=== PATIENT | male | born 1970 | race Caucasian/White ===

== ENCOUNTER 2020-09-21 13:31 | Observation (INO) ==
[2020-09-21] MEDS ORDERED: NORMAL SALINE 1,000 ML IV ONE ×4 (13:36→22:14)
[2020-09-21] MEDS ORDERED: LORazepam 2 MG/ML DISP.SYRIN IV ONE ×2 (13:43→14:43)
[2020-09-21 14:09] LABS: Hematocrit 34.7 % (42.0-52.0); Hemoglobin 11.7 gm/dL (13.5-18.0); Mean Cell Volume 105.8 fl (78-100); Mean Corpuscular Hemoglobin 35.7 pg (27-31); Mean Corpuscular Hgb Conc 33.7 g/dl (32-36); Mean Platelet Volume 10.9 fl (8-11.3); Neutrophil # 2.8 K/mm3 (1.3-6.0); Platelet Count 79 K/mm3 (150-450); Red Blood Count 3.28 M/mm3 (4.7-6.0); Red Cell Distribution Width 11.7 % (11.5-14.0)
[2020-09-21 14:27] LABS: ALT 119 U/L (19-67); AST 177 U/L (0-48); Albumin * 3.3 gm/dl (3.4-5.0); Alkaline Phosphatase * 66 U/L (50-170); Anion Gap 14.9 mmol/L (6.8-13.8); BUN/Creatinine Ratio 8.4 (9.0-21.6); Bilirubin, Total 1.5 mg/dL (0.0-1.1); Blood Urea Nitrogen 9 mg/dL (6-23); Ca. Corrected For Albumin 9.2 mg/dL (8.4-10.2); Carbon Dioxide 27.2 mmol/L (24-32.6); Chloride 100 mmol/L (97-106); Glucose * 185 mg/dL (70-110); Lipase 96 U/L (73-393); Potassium 3.1 mmol/L (3.4-4.6); Sodium 139 mmol/L (132-142); TSH * 0.494 uIU/mL (0.358-3.74)
[2020-09-21 14:28] LABS: Troponin I Less than 0.017 ng/mL (0.00-0.10)
[2020-09-21 15:01] LABS: Urine Appearance Clear (CLEAR); Urine Bilirubin Negative (NEGATIVE); Urine Blood Negative /ul (NEGATIVE); Urine Color Dark Yellow; Urine Ketone Negative (NEGATIVE); Urine Protein 15 mg/dL (NEGATIVE); Urine pH 8.5 pH (5.0-7.0)
[2020-09-21 15:02] LABS: Urine Bacteria None Seen; Urine Nitrite Negative (NEGATIVE); Urine RBC None Seen /hpf (0-5); Urine WBC 0-5 /hpf (0-5)
[2020-09-21 15:07] LABS: Cocaine Ur Negative (NEGATIVE); Urine Barbiturate Negative (NEGATIVE); Urine Benzodiazepines Negative (NEGATIVE); Urine Opiates Negative (NEGATIVE); Urine PCP Negative (NEGATIVE); Urine THC Positive (NEGATIVE)
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
[2020-09-21] MEDS ORDERED: ACETAMINOPHEN 325 MG TABLET PO PRN (22:07)
[2020-09-21] MEDS ORDERED: POTASSIUM CHLORIDE 20 MEQ TABLET.SA PO ONE (22:24)
[2020-09-21] MEDS: NICOTINE 21 MG PATC TD SCH (22:30)
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
[2020-09-21] MEDS: LORazepam 1 MG TABLET PO PRN (22:50)
[2020-09-22 06:21] LABS: Hematocrit 38.4 % (42.0-52.0); Hemoglobin 13.1 gm/dL (13.5-18.0); Mean Cell Volume 104.9 fl (78-100); Mean Corpuscular Hemoglobin 35.8 pg (27-31); Mean Corpuscular Hgb Conc 34.1 g/dl (32-36); Mean Platelet Volume 10.9 fl (8-11.3); Neutrophil # 2.8 K/mm3 (1.3-6.0); Neutrophil % 59.8 % (42-75.0); Platelet Count 91 K/mm3 (150-450); Red Blood Count 3.66 M/mm3 (4.7-6.0); Red Cell Distribution Width 11.4 % (11.5-14.0); White Blood Count 4.6 K/mm3 (4.0-10.5)
[2020-09-22 06:35] LABS: Albumin * 3.4 gm/dl (3.4-5.0); Anion Gap 11.6 mmol/L (6.8-13.8); BUN/Creatinine Ratio 6.5 (9.0-21.6); Bilirubin, Total 1.8 mg/dL (0.0-1.1); Ca. Corrected For Albumin 8.8 mg/dL (8.4-10.2); Calcium * 8.6 mg/dL (7.9-10.9); Carbon Dioxide 27.3 mmol/L (24-32.6); Potassium 2.9 mmol/L (3.4-4.6); Total Protein 7.6 gm/dL (6.2-8.2)
[2020-09-22] MEDS: PANTOPRAZOLE SODIUM 20 MG TABLET.DR PO SCH ×2 (07:13→20:04)
[2020-09-22] MEDS ORDERED: THIAMINE HCL 100 MG TABLET PO SCH (09:00)
[2020-09-22] MEDS ORDERED: FOLIC ACID 1 MG TABLET PO SCH (09:00)
[2020-09-22] MEDS ORDERED: POTASSIUM CHLORIDE 20 MEQ TABLET.SA PO ONE (11:22)
--- NOTE | 2020-09-22 11:36 | PN ---
Subjective - Date and Time Seen Date: 09/22/20 Time: 11:30 Subjective Narrative: I feel better but am still shaky. Objective Objective Narrative: 50-year-old male admitted for apparent alcohol withdrawal seizures, alcohol induced liver injury, and hypokalemia was evaluated bedside this morning was found to be afebrile and in no acute distress. The patient appears fully alert and awake this morning and seems to be his usual self, he does however appear to be tremulous but compared to yesterday this has improved. There was no recurrence of seizures since admission however he was treated with another dose of Ativan for his tremulousness and anxiety. This morning we had another talk about safely weaning off alcohol and abstaining from abusing in the future, he is still in denial that this is not due to alcohol and might be something else. However it was explained to him given his long history of alcoholism alcohol withdrawal seizures is a likely diagnosis. Labs done this morning revealed worsening of his hypokalemia despite the supplement that he was given yesterday, therefore additional IV n.p.o. potassium supplementation were ordered. We will repeat a CMP in the morning for reevaluation of potassium and electrolyte levels. The patient's liver enzymes continue to be elevated but appears to be trending down slightly, we will also reevaluate this in the morning. - Review of Systems Generalized/Overall Review: Reports: No Symptoms Reported EENTM: Reports: No Symptoms Reported Respiratory: Reports: No Symptoms Reported Cardiac: Reports: No Symptoms Reported Abdominal: Reports: No Symptoms Reported Genitourinary Symptoms: Reports: No Symptoms Reported Musculoskeletal Complaints: Reports: No Symptoms Reported Neurological: Denies: Seizure Endocrine: Reports: No Symptoms Reported - Vitals Vitals: Last Vital Signs Temp 36.8 C 09/22/20 10:00 Pulse 80 09/22/20 10:00 Resp 16 09/22/20 10:00 BP 128/80 09/22/20 10:00 Pulse Ox 99 09/22/20 10:00 - Abnormal Lab Findings Abnormal Lab Findings: Abnormal Lab Results 09/21/20 09/21/20 09/21/20 Range/Units 13:50 13:50 13:50 RBC 3.28 L (4.7-6.0) M/mm3 Hgb 11.7 L (13.5-18.0) gm/dL Hct 34.7 L (42.0-52.0) % MCV 105.8 H (78-100) fl MCH 35.7 H (27-31) pg RDW (11.5-14.0) % Plt Count 79 L (150-450) K/mm3 Immature Gran % (Auto) 0.50 H (0.001-0.429) % Lymphocytes % 17.3 L (20-51) % Monocytes % 10.1 H (0.0-9) % Lymphocytes # 0.69 L (1.5-3.5) k/mm3 Potassium 3.1 L (3.4-4.6) mmol/L Anion Gap 14.9 H (6.8-13.8) mmol/L BUN/Creatinine Ratio 8.4 L (9.0-21.6) Random Glucose 185 H (70-110) mg/dL Lactic Acid, Venous 6.7 H* (0.4-2.0) mmol/L Total Bilirubin 1.5 H (0.0-1.1) mg/dL AST 177 H (0-48) U/L ALT 119 H (19-67) U/L C-Reactive Prot, Quant 1.0 H (0.0-0.9) mg/dL Albumin 3.3 L (3.4-5.0) gm/dl Urine Protein (NEGATIVE) mg/dL Urine Glucose (UA) (NEGATIVE) mg/dL Urine Urobilinogen (NORMAL) EU/dl Acetaminophen Less than 0.2 L (10.0-30.0) mcg/mL Urine Marijuana (THC) (NEGATIVE) 09/21/20 09/21/20 09/22/20 Range/Units 14:53 14:53 06:05 RBC 3.66 L (4.7-6.0) M/mm3 Hgb 13.1 L (13.5-18.0) gm/dL Hct 38.4 L (42.0-52.0) % MCV 104.9 H (78-100) fl MCH 35.8 H (27-31) pg RDW 11.4 L (11.5-14.0) % Plt Count 91 L (150-450) K/mm3 Immature Gran % (Auto) (0.001-0.429) % Lymphocytes % (20-51) % Monocytes % 11.9 H (0.0-9) % Lymphocytes # 1.18 L (1.5-3.5) k/mm3 Potassium (3.4-4.6) mmol/L Anion Gap (6.8-13.8) mmol/L BUN/Creatinine Ratio (9.0-21.6) Random Glucose (70-110) mg/dL Lactic Acid, Venous (0.4-2.0) mmol/L Total Bilirubin (0.0-1.1) mg/dL AST (0-48) U/L ALT (19-67) U/L C-Reactive Prot, Quant (0.0-0.9) mg/dL Albumin (3.4-5.0) gm/dl Urine Protein 15 H (NEGATIVE) mg/dL Urine Glucose (UA) 100 H (NEGATIVE) mg/dL Urine Urobilinogen 2.0 H (NORMAL) EU/dl Acetaminophen (10.0-30.0) mcg/mL Urine Marijuana (THC) Positive H (NEGATIVE) 09/22/20 Range/Units 06:05 RBC (4.7-6.0) M/mm3 Hgb (13.5-18.0) gm/dL Hct (42.0-52.0) % MCV (78-100) fl MCH (27-31) pg RDW (11.5-14.0) % Plt Count (150-450) K/mm3 Immature Gran % (Auto) (0.001-0.429) % Lymphocytes % (20-51) % Monocytes % (0.0-9) % Lymphocytes # (1.5-3.5) k/mm3 Potassium 2.9 L (3.4-4.6) mmol/L Anion Gap (6.8-13.8) mmol/L BUN/Creatinine Ratio 6.5 L (9.0-21.6) Random Glucose (70-110) mg/dL Lactic Acid, Venous (0.4-2.0) mmol/L Total Bilirubin 1.8 H (0.0-1.1) mg/dL AST 172 H (0-48) U/L ALT 119 H (19-67) U/L C-Reactive Prot, Quant (0.0-0.9) mg/dL Albumin (3.4-5.0) gm/dl Urine Protein (NEGATIVE) mg/dL Urine Glucose (UA) (NEGATIVE) mg/dL Urine Urobilinogen (NORMAL) EU/dl Acetaminophen (10.0-30.0) mcg/mL Urine Marijuana (THC) (NEGATIVE) - Exam Constitutional: Present: Alert, Oriented x3, Cooperative, Well developed, Well nourished, No distress ENT Exam: Present: normal ENT inspection, hearing grossly normal Neck: Present: non-tender, full range of motion, supple, normal inspection, trachea midline Breasts: Present: Exam deferred Respiratory: Present: chest non-tender, lungs clear, normal breath sounds, no respiratory distress, no accessory muscle use Cardiovascular/Chest: Present: normal peripheral pulses, regular rate, rhythm, no chest tenderness, no edema, no gallop, no JVD, no murmur, no rub Abdomen: Present: Normal bowel sounds, soft, nontender, nondistended, no rebound tenderness /Rectal: Present: Exam deferred Extremity: Present: normal range of motion, non-tender, normal inspection, no pedal edema, no calf tenderness, normal capillary refill Skin Exam: Present: normal color, warm/dry, no cyanosis Lymphatic: Present: no adenopathy Neurologic: Present: family 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 - Problems/Diagnosis (1) New onset seizure Problem: Acute (2) Substance abuse Problem: Acute (3) Elevated lactic acid level Problem: Acute (4) Alcoholism /alcohol abuse Problem: Acute (5) Nicotine dependence Problem: Chronic Qualifiers: Nicotine product type: cigarettes (6) Elevated transaminase level Problem: Acute (7) Thrombocytopenia Problem: Acute (8) Hypokalemia Problem: Acute
[2020-09-22] MEDS: POTASSIUM CHLORIDE IN WATER 100 ML IV SCH ×4 (12:24→16:05)
[2020-09-22] MEDS: NICOTINE 21 MG PATC TD SCH (21:50)
[2020-09-22] MEDS: LORazepam 1 MG TABLET PO PRN (23:52)
[2020-09-23] MEDS: LORazepam 1 MG TABLET PO PRN (05:20)
[2020-09-23 06:42] VITALS: BP 137/91
[2020-09-23 06:50] LABS: Hematocrit 37.9 % (42.0-52.0); Hemoglobin 13.2 gm/dL (13.5-18.0); Mean Cell Volume 104.1 fl (78-100); Mean Corpuscular Hemoglobin 36.3 pg (27-31); Mean Corpuscular Hgb Conc 34.8 g/dl (32-36); Mean Platelet Volume 11.6 fl (8-11.3); Neutrophil % 63.5 % (42-75.0); Platelet Count 104 K/mm3 (150-450); Red Blood Count 3.64 M/mm3 (4.7-6.0); Red Cell Distribution Width 11.2 % (11.5-14.0); White Blood Count 4.7 K/mm3 (4.0-10.5)
[2020-09-23 06:58] LABS: Albumin * 3.5 gm/dl (3.4-5.0); BUN/Creatinine Ratio 9.5 (9.0-21.6); Bilirubin, Total 1.7 mg/dL (0.0-1.1); Ca. Corrected For Albumin 9.5 mg/dL (8.4-10.2); Calcium * 9.4 mg/dL (7.9-10.9); Total Protein 7.6 gm/dL (6.2-8.2)
[2020-09-23] MEDS: PANTOPRAZOLE SODIUM 20 MG TABLET.DR PO SCH (07:18)
--- NOTE | 2020-09-23 09:13 | DS ---
(1) New onset seizure Problem: Resolved (2) Substance abuse Problem: Acute (3) Elevated lactic acid level Problem: Acute (4) Alcoholism /alcohol abuse Problem: Acute (5) Nicotine dependence Problem: Chronic Qualifiers: Nicotine product type: cigarettes (6) Elevated transaminase level Problem: Acute (7) Thrombocytopenia Problem: Acute (8) Hypokalemia Problem: Acute Date of Discharge:: 09/23/20 Hospital Course: Patient did not have recurrence of fever during hospitalization, his potassium is now normal and liver enzymes are trending down. However the patient signed out AMA before being discharged. Procedures Performed: none Results and Findings: Pending Mircobiology Results 09/21/20 14:08 Blood Blood Culture - Preliminary NO GROWTH 24 HOURS 09/21/20 13:50 Blood Blood Culture - Preliminary NO GROWTH 24 HOURS Lab Pending Results 09/21/20 13:50: WBC 4.0, RBC 3.28 L, Hgb 11.7 L, Hct 34.7 L, MCV 105.8 H, MCH 35.7 H, MCHC 33.7, RDW 11.7, Plt Count 79 L, MPV 10.9, Immature Gran % (Auto) 0.50 H, Immature Gran # (Auto) 0.02, Neutrophils % 71.0, Lymphocytes % 17.3 L, Monocytes % 10.1 H, Eosinophils % 0.8, Basophils % 0.3, Nucleated RBC % 0.0, Neutrophils # 2.8, Lymphocytes # 0.69 L, Monocytes # 0.4, Eosinophils # 0.0, Absolute Basophils 0.0 09/21/20 13:50: Sodium 139, Plasma Sodium 140, Potassium 3.1 L, Chloride 100, Carbon Dioxide 27.2, Anion Gap 14.9 H, BUN 9, Creatinine 1.07, Est GFR (Non-Af Amer) 78, BUN/Creatinine Ratio 8.4 L, Random Glucose 185 H, Calcium 9.0, Calcium Adj for Albumin 9.2, Total Bilirubin 1.5 H, AST 177 H, ALT 119 H, Alkaline Phosphatase 66, Troponin I Less than 0.017, C-Reactive Prot, Quant 1.0 H, Total Protein 7.0, Albumin 3.3 L, Lipase 96, TSH 0.494, Acetaminophen Less than 0.2 L, Ethyl Alcohol Less than 3.0 09/21/20 13:50: Lactic Acid, Venous 6.7 H* 09/21/20 13:50: Procalcitonin 0.08 09/21/20 13:50: SARS-CoV-2 (PCR) Not detected 09/21/20 13:50: Creatine Kinase 177 09/21/20 14:53: Urine Color Dark yellow, Urine Appearance Clear, Urine pH 8.5, Ur Specific [place] 1.020, Urine Protein 15 H, Urine Glucose (UA) 100 H, Urine Ketones Negative, Urine Blood Negative, Urine Nitrate Negative, Urine Bilirubin Negative, Prot Sulfosalicylic Acd 1+, Urine Urobilinogen 2.0 H, Ur Leukocyte Esterase Negative, Urine RBC None seen, Urine WBC 0-5, Ur Epithelial Cells 0-5, Urine Bacteria None seen, Urine Culture Comments No culture indicated 09/21/20 14:53: Urine Opiates Screen Negative, Barbiturate Screen Negative, Ur Phencyclidine Scrn Negative, Urine Amphetamine Negative, U Benzodiazepines Scrn Negative, Urine Cocaine Screen Negative, Urine Marijuana (THC) Positive H 09/21/20 16:41: Lactic Acid, Venous 1.8 09/21/20 16:41: Ammonia Less than 17.0 09/22/20 06:05: WBC 4.6, RBC 3.66 L, Hgb 13.1 L, Hct 38.4 L, MCV 104.9 H, MCH 35.8 H, MCHC 34.1, RDW 11.4 L, Plt Count 91 L, MPV 10.9, Immature Gran % (Auto) 0.20, Immature Gran # (Auto) 0.01, Neutrophils % 59.8, Lymphocytes % 25.5, Monocytes % 11.9 H, Eosinophils % 2.2, Basophils % 0.4, Nucleated RBC % 0.0, Neutrophils # 2.8, Lymphocytes # 1.18 L, Monocytes # 0.6, Eosinophils # 0.1, Absolute Basophils 0.0 09/22/20 06:05: Sodium 136, Plasma Sodium 136, Potassium 2.9 L, Chloride 100, Carbon Dioxide 27.3, Anion Gap 11.6, BUN 6, Creatinine 0.92, Est GFR (Non-Af Amer) 93, BUN/Creatinine Ratio 6.5 L, Random Glucose 98 D, Calcium 8.6, Calcium Adj for Albumin 8.8, Total Bilirubin 1.8 H, AST 172 H, ALT 119 H, Alkaline Phosphatase 67, Total Protein 7.6, Albumin 3.4 09/23/20 06:34: Sodium 137, Plasma Sodium 137, Potassium 4.0 D, Chloride 100, Carbon Dioxide 26.0, Anion Gap 15.0 H, BUN 8, Creatinine 0.84, Est GFR (Non-Af Amer) 103, BUN/Creatinine Ratio 9.5, Random Glucose 99, Calcium 9.4, Calcium Adj for Albumin 9.5, Total Bilirubin 1.7 H, AST 147 H, ALT 127 H, Alkaline Phosphatase 64, Total Protein 7.6, Albumin 3.5 09/23/20 06:34: WBC 4.7, RBC 3.64 L, Hgb 13.2 L, Hct 37.9 L, MCV 104.1 H, MCH 36.3 H, MCHC 34.8, RDW 11.2 L, Plt Count 104 L, MPV 11.6 H, Immature Gran % (Auto) 0.20, Immature Gran # (Auto) 0.01, Neutrophils % 63.5, Lymphocytes % 23.4, Monocytes % 10.4 H, Eosinophils % 2.1, Basophils % 0.4, Nucleated RBC % 0.0, Neutrophils # 3.0, Lymphocytes # 1.10 L, Monocytes # 0.5, Eosinophils # 0.1, Absolute Basophils 0.0 Disposition: Against medical advice Condition: Fair Discharge Activity: Activity as tolerated Discharge Diet: General/regular food Complete Home Medications List: Complete Home Medication List: NK 01/24/19
== END 2020-09-23 07:45 | disposition left against medical advice (07) ==
LOC: ER 13:31 → MS 13:31
PROVIDERS: ADMIT Family Medicine; ATTEND Family Medicine

== ENCOUNTER 2020-12-30 15:48 | Inpatient (IN) ==
[2020-12-30] MEDS ORDERED: ONDANSETRON HCL/PF 2 MG/ML VIAL IV ONE ×2 (16:02→18:00)
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
[2020-12-30 16:18] LABS: Hematocrit 39.8 % (42.0-52.0); Hemoglobin 13.7 gm/dL (13.5-18.0); Mean Cell Volume 109.6 fl (78-100); Mean Corpuscular Hemoglobin 37.7 pg (27-31); Mean Corpuscular Hgb Conc 34.4 g/dl (32-36); Mean Platelet Volume 10.8 fl (8-11.3); Platelet Count 145 K/mm3 (150-450); Red Blood Count 3.63 M/mm3 (4.7-6.0); Red Cell Distribution Width 11.9 % (11.5-14.0)
[2020-12-30 16:20] LABS: Total Cells Counted 100
[2020-12-30 16:32] LABS: Albumin * 4.5 gm/dl (3.4-5.0); Anion Gap 25.9 mmol/L (6.8-13.8); BUN/Creatinine Ratio 16.3 (9.0-21.6); Ca. Corrected For Albumin 8.7 mg/dL (8.4-10.2); Calcium * 9.4 mg/dL (7.9-10.9); Carbon Dioxide 23.9 mmol/L (24-32.6); Potassium 2.8 mmol/L (3.4-4.6); Total Protein 8.6 gm/dL (6.2-8.2)
[2020-12-30 16:49] LABS: Band 8 % (0-2.0); Lymphocyte 4 % (20-51); Monocyte 9 % (0-9); Neutrophil 79 % (42-75); Neutrophil # 11.9 K/mm3 (1.3-6.0)
[2020-12-30 16:51] LABS: Platelet Estimate Normal (NORMAL)
[2020-12-30 16:52] LABS: RBC Morphology Normal (NORMAL)
[2020-12-30] MEDS ORDERED: DIATRIZOATE MEGLUMINE, SODIUM 30 ML BTL PO ONE (17:09)
[2020-12-30 17:23] LABS: Urine Bilirubin 6 mg/dl (NEGATIVE); Urine Blood 50 /ul (NEGATIVE); Urine Ketone Large mg/dL (NEGATIVE); Urine Protein 100 mg/dL (NEGATIVE); Urine Specific Gravity >=1.030 SP.GR. (1.005-1.030); Urine Urobilinogen 4 EU/dl (NORMAL)
[2020-12-30 17:36] LABS: Urine Appearance Clear (CLEAR); Urine Bacteria 1+; Urine Color Orange; Urine Nitrite Positive (NEGATIVE); Urine RBC 0-5 /hpf (0-5); Urine WBC 0-5 /hpf (0-5)
[2020-12-30 17:37] LABS: Urine Mucus Moderate - 2+
[2020-12-30] MEDS ORDERED: KETOROLAC TROMETHAMINE 30 MG/ML VIAL IV ONE (18:25)
[2020-12-30] MEDS ORDERED: NORMAL SALINE 1,000 ML IV ONE (19:42)
[2020-12-30] MEDS ORDERED: LORazepam 2 MG/ML DISP.SYRIN IV PRN ×4 (20:02)
[2020-12-30] MEDS ORDERED: LORazepam 1 MG TABLET PO PRN ×2 (20:02)
[2020-12-30] MEDS ORDERED: NORMAL SALINE 1,000 ML IV PRN (20:11)
[2020-12-30] MEDS ORDERED: POTASSIUM BICARBONATE/CIT AC 25 MEQ TABLET.EFF PO ONE (20:15)
[2020-12-30] MEDS ORDERED: MULTIVIT INFUSN,ADULT 4,VIT K 10 ML, THIAMINE HCL 100 MG in NORMAL SALINE 1,000 ML IV SCH (20:15)
[2020-12-30] MEDS: LORazepam 1 MG TABLET PO SCH (21:28)
[2020-12-30] MEDS ORDERED: BENZONATATE 100 MG CAPSULE PO PRN (22:19)
[2020-12-31] MEDS: LORazepam 1 MG TABLET PO SCH ×3 (02:49→16:05)
[2020-12-31] MEDS ORDERED: ACETAMINOPHEN 325 MG TABLET PO PRN (08:33)
[2020-12-31 10:07] LABS: Hematocrit 35.2 % (42.0-52.0); Hemoglobin 12.1 gm/dL (13.5-18.0); Mean Corpuscular Hemoglobin 38.2 pg (27-31); Mean Corpuscular Hgb Conc 34.4 g/dl (32-36); Mean Platelet Volume 11.3 fl (8-11.3); Neutrophil # 8.4 K/mm3 (1.3-6.0); Neutrophil % 82.7 % (42-75.0); Platelet Count 85 K/mm3 (150-450); Red Blood Count 3.17 M/mm3 (4.7-6.0); Red Cell Distribution Width 11.7 % (11.5-14.0); White Blood Count 10.2 K/mm3 (4.0-10.5)
[2020-12-31 10:21] LABS: Albumin * 3.2 gm/dl (3.4-5.0); Anion Gap 12.1 mmol/L (6.8-13.8); BUN/Creatinine Ratio 22.2 (9.0-21.6); Bilirubin, Total 1.8 mg/dL (0.0-1.1); Ca. Corrected For Albumin 8.1 mg/dL (8.4-10.2); Calcium * 7.8 mg/dL (7.9-10.9); Carbon Dioxide 28.7 mmol/L (24-32.6); Potassium 2.8 mmol/L (3.4-4.6); Total Protein 6.8 gm/dL (6.2-8.2)
[2020-12-31] MEDS ORDERED: POTASSIUM CHLORIDE 20 MEQ TABLET.SA PO SCH (10:43)
--- NOTE | 2020-12-31 12:32 | PN ---
Objective - Vitals Vitals: Last Vital Signs Temp 38.2 C H 12/31/20 10:00 Pulse 101 H 12/31/20 10:00 Resp 22 H 12/31/20 10:00 BP 136/74 12/31/20 10:00 Pulse Ox 99 12/31/20 10:00 - Abnormal Lab Findings Abnormal Lab Findings: Abnormal Lab Results 12/30/20 12/30/20 12/30/20 Range/Units 16:08 16:08 16:08 WBC 15.0 H (4.0-10.5) K/mm3 RBC 3.63 L (4.7-6.0) M/mm3 Hgb (13.5-18.0) gm/dL Hct 39.8 L (42.0-52.0) % MCV 109.6 H (78-100) fl MCH 37.7 H (27-31) pg Plt Count 145 L (150-450) K/mm3 Neutrophils % (42-75.0) % Neutrophils % (Manual) 79 H (42-75) % Band Neuts % (Manual) 8 H (0-2.0) % Lymphocytes % (20-51) % Lymphocytes % (Manual) 4 L (20-51) % Monocytes % (0.0-9) % Neutrophils # (1.3-6.0) K/mm3 Neutrophils # (Manual) 11.9 H (1.3-6.0) K/mm3 Lymphocytes # (1.5-3.5) k/mm3 Lymphocytes # (Manual) 0.6 L (1.5-3.5) k/mm3 Monocytes # (Manual) 1.4 H (0.0-1.0) k/mm3 Potassium 2.8 L D (3.4-4.6) mmol/L Chloride 90 L (97-106) mmol/L Carbon Dioxide 23.9 L (24-32.6) mmol/L Anion Gap 25.9 H (6.8-13.8) mmol/L BUN 24 H D (6-23) mg/dL Creatinine 1.47 H D (0.4-1.4) mg/dL Est GFR (Non-Af Amer) 54 L D (60-130) mL/min BUN/Creatinine Ratio (9.0-21.6) Random Glucose 204 H (70-110) mg/dL Lactic Acid, Venous 9.1 H* (0.4-2.0) mmol/L Calcium (7.9-10.9) mg/dL Calcium Adj for Albumin (8.4-10.2) mg/dL Total Bilirubin 4.0 H (0.0-1.1) mg/dL AST 76 H (0-48) U/L ALT 70 H (19-67) U/L Alkaline Phosphatase (50-170) U/L Total Protein 8.6 H (6.2-8.2) gm/dL Albumin (3.4-5.0) gm/dl Urine Protein (NEGATIVE) mg/dL Urine Blood (NEGATIVE) /ul Urine Nitrate (NEGATIVE) Urine Bilirubin (NEGATIVE) mg/dl Urine Urobilinogen (NORMAL) EU/dl Urine Bacteria (NONE) Hyaline Casts (NONE) /LPF Urine Mucus (NONE) 12/30/20 12/30/20 12/31/20 Range/Units 17:08 21:25 10:02 WBC (4.0-10.5) K/mm3 RBC 3.17 L (4.7-6.0) M/mm3 Hgb 12.1 L (13.5-18.0) gm/dL Hct 35.2 L (42.0-52.0) % MCV 111.0 H (78-100) fl MCH 38.2 H (27-31) pg Plt Count 85 L (150-450) K/mm3 Neutrophils % 82.7 H (42-75.0) % Neutrophils % (Manual) (42-75) % Band Neuts % (Manual) (0-2.0) % Lymphocytes % 7.5 L (20-51) % Lymphocytes % (Manual) (20-51) % Monocytes % 9.3 H (0.0-9) % Neutrophils # 8.4 H (1.3-6.0) K/mm3 Neutrophils # (Manual) (1.3-6.0) K/mm3 Lymphocytes # 0.76 L (1.5-3.5) k/mm3 Lymphocytes # (Manual) (1.5-3.5) k/mm3 Monocytes # (Manual) (0.0-1.0) k/mm3 Potassium (3.4-4.6) mmol/L Chloride (97-106) mmol/L Carbon Dioxide (24-32.6) mmol/L Anion Gap (6.8-13.8) mmol/L BUN (6-23) mg/dL Creatinine (0.4-1.4) mg/dL Est GFR (Non-Af Amer) (60-130) mL/min BUN/Creatinine Ratio (9.0-21.6) Random Glucose (70-110) mg/dL Lactic Acid, Venous 2.1 H (0.4-2.0) mmol/L Calcium (7.9-10.9) mg/dL Calcium Adj for Albumin (8.4-10.2) mg/dL Total Bilirubin (0.0-1.1) mg/dL AST (0-48) U/L ALT (19-67) U/L Alkaline Phosphatase (50-170) U/L Total Protein (6.2-8.2) gm/dL Albumin (3.4-5.0) gm/dl Urine Protein 100 H (NEGATIVE) mg/dL Urine Blood 50 H (NEGATIVE) /ul Urine Nitrate Positive H (NEGATIVE) Urine Bilirubin 6 H (NEGATIVE) mg/dl Urine Urobilinogen 4 H (NORMAL) EU/dl Urine Bacteria 1+ H (NONE) Hyaline Casts 10-25 H (NONE) /LPF Urine Mucus Moderate - 2+ H (NONE) 12/31/20 Range/Units 10:02 WBC (4.0-10.5) K/mm3 RBC (4.7-6.0) M/mm3 Hgb (13.5-18.0) gm/dL Hct (42.0-52.0) % MCV (78-100) fl MCH (27-31) pg Plt Count (150-450) K/mm3 Neutrophils % (42-75.0) % Neutrophils % (Manual) (42-75) % Band Neuts % (Manual) (0-2.0) % Lymphocytes % (20-51) % Lymphocytes % (Manual) (20-51) % Monocytes % (0.0-9) % Neutrophils # (1.3-6.0) K/mm3 Neutrophils # (Manual) (1.3-6.0) K/mm3 Lymphocytes # (1.5-3.5) k/mm3 Lymphocytes # (Manual) (1.5-3.5) k/mm3 Monocytes # (Manual) (0.0-1.0) k/mm3 Potassium 2.8 L (3.4-4.6) mmol/L Chloride (97-106) mmol/L Carbon Dioxide (24-32.6) mmol/L Anion Gap (6.8-13.8) mmol/L BUN (6-23) mg/dL Creatinine (0.4-1.4) mg/dL Est GFR (Non-Af Amer) (60-130) mL/min BUN/Creatinine Ratio 22.2 H (9.0-21.6) Random Glucose 143 H (70-110) mg/dL Lactic Acid, Venous (0.4-2.0) mmol/L Calcium 7.8 L (7.9-10.9) mg/dL Calcium Adj for Albumin 8.1 L (8.4-10.2) mg/dL Total Bilirubin 1.8 H (0.0-1.1) mg/dL AST 98 H (0-48) U/L ALT (19-67) U/L Alkaline Phosphatase 43 L (50-170) U/L Total Protein (6.2-8.2) gm/dL Albumin 3.2 L (3.4-5.0) gm/dl Urine Protein (NEGATIVE) mg/dL Urine Blood (NEGATIVE) /ul Urine Nitrate (NEGATIVE) Urine Bilirubin (NEGATIVE) mg/dl Urine Urobilinogen (NORMAL) EU/dl Urine Bacteria (NONE) Hyaline Casts (NONE) /LPF Urine Mucus (NONE) Assessment/Plan - Problems/Diagnosis (1) Sepsis Problem: Acute Qualifiers: Sepsis type: sepsis due to unspecified organism Sepsis acute organ dysfunction status: with acute organ dysfunction 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 Lactic acid and vitals improved following fluid bolus in the ER. Sepsis reassessment data reviewed through nursing at approximately 2200 on 12/30/20. Vitals reviewed: Yes Heart Sounds: Regular Breath Sounds: Diminished Peripheral Pulse: Radial Peripheral Pulse Strength: Normal Capillary Refill: < 3 seconds Skin Color/Condition: Warm
[2020-12-31] MEDS ORDERED: ACETAMINOPHEN 650 MG SUPP.RECT RC PRN (15:37)
[2020-12-31 15:39] LABS: Cocaine Ur Negative (NEGATIVE); Urine Barbiturate Negative (NEGATIVE); Urine Benzodiazepines Negative (NEGATIVE); Urine Opiates Negative (NEGATIVE); Urine PCP Negative (NEGATIVE)
[2020-12-31 15:48] LABS: Urine THC Positive (NEGATIVE)
[2020-12-31] MEDS: LORazepam 2 MG/ML DISP.SYRIN IV SCH ×2 (16:16→21:40)
[2020-12-31] MEDS: POTASSIUM CHLORIDE IN WATER 100 ML IV SCH ×4 (16:21→20:29)
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
[2020-12-31] MEDS: MULTIVIT INFUSN,ADULT 4,VIT K 10 ML, THIAMINE HCL 100 MG in NORMAL SALINE 1,000 ML IV SCH (21:42)
[2021-01-01] MEDS: LORazepam 2 MG/ML DISP.SYRIN IV SCH ×4 (02:47→21:15)
[2021-01-01 09:00] LABS: Hematocrit 37.4 % (42.0-52.0); Hemoglobin 12.7 gm/dL (13.5-18.0); Mean Cell Volume 112.3 fl (78-100); Mean Corpuscular Hemoglobin 38.1 pg (27-31); Mean Platelet Volume 10.9 fl (8-11.3); Neutrophil % 67.2 % (42-75.0); Platelet Count 104 K/mm3 (150-450); Red Blood Count 3.33 M/mm3 (4.7-6.0); Red Cell Distribution Width 11.5 % (11.5-14.0)
[2021-01-01 09:08] LABS: Albumin * 3.2 gm/dl (3.4-5.0); Anion Gap 17.9 mmol/L (6.8-13.8); BUN/Creatinine Ratio 15.3 (9.0-21.6); Bilirubin, Total 1.7 mg/dL (0.0-1.1); Ca. Corrected For Albumin 8.6 mg/dL (8.4-10.2); Calcium * 8.3 mg/dL (7.9-10.9); Potassium 2.9 mmol/L (3.4-4.6)
[2021-01-01] MEDS: POTASSIUM CHLORIDE IN WATER 100 ML IV SCH ×4 (10:44→14:18)
[2021-01-01] MEDS ORDERED: NICOTINE 21 MG PATC TD SCH (14:30)
[2021-01-01] MEDS: MULTIVIT INFUSN,ADULT 4,VIT K 10 ML, THIAMINE HCL 100 MG in NORMAL SALINE 1,000 ML IV SCH (21:14)
--- NOTE | 2021-01-01 21:24 | PN ---
Subjective - Date and Time Seen Date: 01/01/21 Time: 16:15 Subjective Narrative: Chapo is doing better today. He is less confused, although still weak and unstead on his feet. He did well with video swallow, likely due to his improved alertness today. He has less tremor. He reports feeling weak but overall feeling better and he thinks he will soon be ready to go home. No fever, chills, nausea, or vomiting. Objective - Vitals Vitals: Last Vital Signs Temp 37.6 C 01/01/21 18:00 Pulse 92 01/01/21 18:00 Resp 19 01/01/21 18:00 BP 135/89 01/01/21 18:00 Pulse Ox 95 01/01/21 18:00 - Abnormal Lab Findings Abnormal Lab Findings: Abnormal Lab Results 01/01/21 01/01/21 Range/Units 08:32 08:32 RBC 3.33 L (4.7-6.0) M/mm3 Hgb 12.7 L (13.5-18.0) gm/dL Hct 37.4 L (42.0-52.0) % MCV 112.3 H (78-100) fl MCH 38.1 H (27-31) pg Plt Count 104 L (150-450) K/mm3 Monocytes % 9.8 H (0.0-9) % Lymphocytes # 1.30 L (1.5-3.5) k/mm3 Potassium 2.9 L (3.4-4.6) mmol/L Anion Gap 17.9 H (6.8-13.8) mmol/L Total Bilirubin 1.7 H (0.0-1.1) mg/dL AST 140 H (0-48) U/L Alkaline Phosphatase 38 L (50-170) U/L Albumin 3.2 L (3.4-5.0) gm/dl - Exam Constitutional: Present: Alert, Oriented x3, Cooperative Respiratory: Present: lungs clear, normal breath sounds, no respiratory distress Cardiovascular/Chest: Present: regular rate, rhythm, no murmur Abdomen: Present: Normal bowel sounds, soft, nontender, nondistended Skin Exam: Present: normal color, warm/dry, no cyanosis Appearance: Present: appropriate appearance, appropriate insight Eye contact: Present: cooperative, good eye contact, normal speech Thoughts: Present: normal thought pattern, no apparent hallucination Assessment/Plan Plan Narrative: Chapo is much improved today. Still suspicious of aspiration pneumonia although he did well with video swallow today. Speech worked with swallowing with him today. Continue antibiotics. Continue alcohol withdrawal treatment. Potassium was still 2.9 today. Will replace and monitor. He may be discharged tomorrow if he continues to improve and potassium improves. - Problems/Diagnosis (1) Sepsis Problem: Acute Qualifiers: Sepsis type: sepsis due to unspecified organism Sepsis acute organ dysfunction status: with acute organ dysfunction Severe sepsis acute organ dysfunction type: encephalopathy Severe sepsis shock status: with septic shock Qualified Code(s): A41.9 - Sepsis, unspecified organism; R65.21 - Severe sepsis with septic shock; G93.40 - Encephalopathy, unspecified (2) Aspiration pneumonia Problem: Suspected Qualifiers: Laterality: unspecified laterality Lung location: unspecified part of lung (3) Metabolic encephalopathy Problem: Acute (4) Pyelonephritis Problem: Suspected (5) Hypokalemia Problem: Acute (6) Alcohol withdrawal Problem: Acute Qualifiers: Complication of substance-induced condition: with delirium Qualified Code(s): F10.231 - Alcohol dependence with withdrawal delirium (7) Alcoholism /alcohol abuse Problem: Chronic
[2021-01-01 21:51] LABS: Albumin * 3.2 gm/dl (3.4-5.0); Anion Gap 11.7 mmol/L (6.8-13.8); Bilirubin, Total 1.3 mg/dL (0.0-1.1); Ca. Corrected For Albumin 9.1 mg/dL (8.4-10.2); Calcium * 8.8 mg/dL (7.9-10.9); Carbon Dioxide 28.1 mmol/L (24-32.6); Potassium 2.8 mmol/L (3.4-4.6); Total Protein 7.1 gm/dL (6.2-8.2)
[2021-01-02 01:41] VITALS: BP 159/97
[2021-01-02] MEDS: LORazepam 2 MG/ML DISP.SYRIN IV SCH (03:58)
[2021-01-02 06:44] LABS: Hematocrit 36.1 % (42.0-52.0); Hemoglobin 12.6 gm/dL (13.5-18.0); Mean Cell Volume 107.4 fl (78-100); Mean Corpuscular Hemoglobin 37.5 pg (27-31); Mean Corpuscular Hgb Conc 34.9 g/dl (32-36); Mean Platelet Volume 10.8 fl (8-11.3); Neutrophil # 4.8 K/mm3 (1.3-6.0); Platelet Count 141 K/mm3 (150-450); Red Blood Count 3.36 M/mm3 (4.7-6.0); Red Cell Distribution Width 11.1 % (11.5-14.0); White Blood Count 6.9 K/mm3 (4.0-10.5)
[2021-01-02 06:54] LABS: Albumin * 3.3 gm/dl (3.4-5.0); Anion Gap 10.5 mmol/L (6.8-13.8); BUN/Creatinine Ratio 8.9 (9.0-21.6); Bilirubin, Total 1.7 mg/dL (0.0-1.1); Ca. Corrected For Albumin 8.6 mg/dL (8.4-10.2); Calcium * 8.4 mg/dL (7.9-10.9); Carbon Dioxide 29.1 mmol/L (24-32.6); Potassium 2.6 mmol/L (3.4-4.6); Total Protein 7.2 gm/dL (6.2-8.2)
--- NOTE | 2021-01-02 16:17 | DS ---
(1) Metabolic encephalopathy Problem: Acute (2) Sepsis Problem: Ruled-out Qualifiers: Sepsis type: sepsis due to unspecified organism Sepsis acute organ dysfunction status: with acute organ dysfunction Severe sepsis acute organ dysfunction type: encephalopathy Severe sepsis shock status: with septic shock Qualified Code(s): A41.9 - Sepsis, unspecified organism; R65.21 - Severe sepsis with septic shock; G93.40 - Encephalopathy, unspecified (3) Aspiration pneumonia Problem: Ruled-out Qualifiers: Laterality: unspecified laterality Lung location: unspecified part of lung (4) Pyelonephritis Problem: Ruled-out (5) Hypokalemia Problem: Acute (6) Alcohol withdrawal Problem: Resolved Qualifiers: Complication of substance-induced condition: with delirium Qualified Code(s): F10.231 - Alcohol dependence with withdrawal delirium (7) Alcoholism /alcohol abuse Problem: Chronic Date of Discharge:: 01/02/21 Hospital Course: Chapo was admitted due to metabolic encephalopathy with hypokalemia and concerns of sepsis, aspiration pneumonia, pyelonephritis, seizures, and alcohol withdrawal. He was treated with fluids, antibiotics, and potassium replacement. He significantly improved. Initially he was very confused and somnolent, but with treatment he returned to his baseline. Although once he was back at his baseline he left against medical advice. At the time he signed out AMA his potas sium was still low at 2.6, but he declined further treatment. No medications were able to be prescribed or follow up scheduled due to abruptly leaving the hospital. Procedures Performed: none Results and Findings: Pending Mircobiology Results 12/30/20 18:35 Blood Blood Culture - Preliminary NO GROWTH AFTER 48 HOURS 12/30/20 16:08 Blood Blood Culture - Preliminary NO GROWTH AFTER 48 HOURS Lab Pending Results 12/30/20 16:08: WBC 15.0 H, RBC 3.63 L, Hgb 13.7, Hct 39.8 L, MCV 109.6 H, MCH 37.7 H, MCHC 34.4, RDW 11.9, Plt Count 145 L, MPV 10.8, Neutrophils % (Manual) 79 H, Band Neuts % (Manual) 8 H, Lymphocytes % (Manual) 4 L, Monocytes % (Manual) 9, Neutrophils # (Manual) 11.9 H, Lymphocytes # (Manual) 0.6 L, Monocytes # (Manual) 1.4 H, Toxic Vacuolation Trace, Platelet Estimate Normal, RBC Morphology Normal 12/30/20 16:08: Sodium 137, Plasma Sodium 139, Potassium 2.8 L D, Chloride 90 L, Carbon Dioxide 23.9 L, Anion Gap 25.9 H, BUN 24 H D, Creatinine 1.47 H D, Est GFR (Non-Af Amer) 54 L D, BUN/Creatinine Ratio 16.3, Random Glucose 204 H, Calcium 9.4, Calcium Adj for Albumin 8.7, Total Bilirubin 4.0 H, AST 76 H, ALT 70 H, Alkaline Phosphatase 54, Total Protein 8.6 H, Albumin 4.5 12/30/20 16:08: Lactic Acid, Venous 9.1 H* 12/30/20 16:08: Magnesium 1.8 12/30/20 17:08: Urine Color [place], Urine Appearance Clear, Urine pH 6.0, Ur Specific [place] >=1.030, Urine Protein 100 H, Urine Glucose (UA) Negative, Urine Ketones Large, Urine Blood 50 H, Urine Nitrate Positive H, Urine Bilirubin 6 H, Urine Urobilinogen 4 H, Ur Leukocyte Esterase Negative, Urine RBC 0-5, Urine WBC 0-5, Ur Epithelial Cells Trace, Urine Bacteria 1+ H, Hyaline Casts 10- 25 H, Urine Mucus Moderate - 2+ H, Urine Culture Comments Culture to follow 12/30/20 17:08: Urine Opiates Screen Negative, Barbiturate Screen Negative, Ur Phencyclidine Scrn Negative, Urine Amphetamine Negative, U Benzodiazepines Scrn Negative, Urine Cocaine Screen Negative, Urine Marijuana (THC) Positive H 12/30/20 18:36: SARS-CoV-2 (PCR) Not detected 12/30/20 19:25: Ammonia Less than 17.0 12/30/20 21:25: Lactic Acid, Venous 2.1 H 12/31/20 10:02: WBC 10.2 D, RBC 3.17 L, Hgb 12.1 L, Hct 35.2 L, MCV 111.0 H, MCH 38.2 H, MCHC 34.4, RDW 11.7, Plt Count 85 L, MPV 11.3, Immature Gran % (Auto) 0.30, Immature Gran # (Auto) 0.03, Neutrophils % 82.7 H, Lymphocytes % 7.5 L, Monocytes % 9.3 H, Eosinophils % 0.0, Basophils % 0.2, Nucleated RBC % 0.0, Neutrophils # 8.4 H, Lymphocytes # 0.76 L, Monocytes # 1.0, Eosinophils # 0.0, Absolute Basophils 0.0 12/31/20 10:02: Sodium 139, Plasma Sodium 140, Potassium 2.8 L, Chloride 101, Carbon Dioxide 28.7, Anion Gap 12.1, BUN 18, Creatinine 0.81, Est GFR (Non-Af Amer) 108 D, BUN/Creatinine Ratio 22.2 H, Random Glucose 143 H, Calcium 7.8 L, Calcium Adj for Albumin 8.1 L, Total Bilirubin 1.8 H, AST 98 H, ALT 57, Alkaline Phosphatase 43 L, Total Protein 6.8, Albumin 3.2 L 12/31/20 10:02: Lactic Acid, Venous 1.1 01/01/21 08:32: WBC 6.0 D, RBC 3.33 L, Hgb 12.7 L, Hct 37.4 L, MCV 112.3 H, MCH 38.1 H, MCHC 34.0, RDW 11.5, Plt Count 104 L, MPV 10.9, Immature Gran % (Auto) 0.30, Immature Gran # (Auto) 0.02, Neutrophils % 67.2, Lymphocytes % 21.6, Monocytes % 9.8 H, Eosinophils % 0.8, Basophils % 0.3, Nucleated RBC % 0.0, Neutrophils # 4.0, Lymphocytes # 1.30 L, Monocytes # 0.6, Eosinophils # 0.1, Absolute Basophils 0.0 01/01/21 08:32: Sodium 142, Plasma Sodium 142, Potassium 2.9 L, Chloride 103, Carbon Dioxide 24.0, Anion Gap 17.9 H, BUN 11, Creatinine 0.72, Est GFR (Non-Af Amer) 123, BUN/Creatinine Ratio 15.3, Random Glucose 86 D, Calcium 8.3, Calcium Adj for Albumin 8.6, Total Bilirubin 1.7 H, AST 140 H, ALT 62, Alkaline Phosphatase 38 L, Total Protein 7.0, Albumin 3.2 L 01/01/21 19:30: Sodium 137, Plasma Sodium 138, Potassium 2.8 L, Chloride 100, Carbon Dioxide 28.1, Anion Gap 11.7, BUN 12, Creatinine 0.80, Est GFR (Non-Af Amer) 109, BUN/Creatinine Ratio 15.0, Random Glucose 151 H D, Calcium 8.8, Calcium Adj for Albumin 9.1, Total Bilirubin 1.3 H, AST 172 H, ALT 73 H, Alkaline Phosphatase 55, Total Protein 7.1, Albumin 3.2 L 01/02/21 06:17: WBC 6.9, RBC 3.36 L, Hgb 12.6 L, Hct 36.1 L, MCV 107.4 H, MCH 37.5 H, MCHC 34.9, RDW 11.1 L, Plt Count 141 L, MPV 10.8, Immature Gran % (Auto) 0.30, Immature Gran # (Auto) 0.02, Neutrophils % 69.0, Lymphocytes % 19.0 L, Monocytes % 9.7 H, Eosinophils % 1.6, Basophils % 0.4, Nucleated RBC % 0.0, Neutrophils # 4.8, Lymphocytes # 1.32 L, Monocytes # 0.7, Eosinophils # 0.1, Absolute Basophils 0.0 01/02/21 06:17: Sodium 136, Plasma Sodium 137, Potassium 2.6 L, Chloride 99, Carbon Dioxide 29.1, Anion Gap 10.5, BUN 7, Creatinine 0.79, Est GFR (Non-Af Amer) 111, BUN/Creatinine Ratio 8.9 L, Random Glucose 140 H, Calcium 8.4, Calcium Adj for Albumin 8.6, Total Bilirubin 1.7 H, AST 178 H, ALT 79 H, Alkaline Phosphatase 44 L, Total Protein 7.2, Albumin 3.3 L Discharge Location: Home Disposition: Against medical advice Condition: Fair Discharge Activity: Activity as tolerated Discharge Diet: General/regular food Complete Home Medications List: Complete Home Medication List: NK 01/24/19 Forms: Patient Portal Registration
== END 2021-01-02 07:10 | disposition left against medical advice (07) | DRG 894 ==
LOC: ER 15:48 → MS 20:06
PROVIDERS: ADMIT Family Medicine; ATTEND Family Medicine